=== PATIENT | female | born 1975 | race Caucasian/White ===

== ENCOUNTER 2017-03-24 22:37 | Emergency (ER) | payer SELFPAY ==
[2017-03-25] MEDS ORDERED: Meclizine TAB* 12.5 MG PO ONE (02:49)
[2017-03-25] MEDS ORDERED: NS 0.9% 1000 ML* 2,000 ML IV ONE (02:49)
[2017-03-25] MEDS ORDERED: Ketorolac INJ* 30 MG/ML 1 ML VIAL IV PUSH ONE (03:32)
[2017-03-25 04:02] LABS: Hematocrit 31 % (35-47); Hemoglobin 9.9 g/dl (12.0-16.0); Mean Corpuscular HGB Conc 32 g/dl (31-36); Mean Corpuscular Hemoglobin 26 pg (27-31); Mean Corpuscular Volume 79 fL (80-97); Mean Platelet Volume 7 um3 (7.4-10.4); Red Cell Distribution Width 17 % (10.5-15); White Blood Count 5.8 10^3/ul (3.5-10.8)
[2017-03-25 04:14] LABS: ALT 10 U/L (7-52); AST 15 U/L (13-39); Albumin 4.4 g/dL (3.2-5.2); Alkaline Phosphatase 47 U/L (34-104); Anion Gap 7 mmol/L (2-11); BUN/Creatinine Ratio 13.8 (8-20); Blood Urea Nitrogen 9 mg/dL (6-24); C Reactive Protein < 1.00 mg/L (< 5.00); CO2 Carbon Dioxide 26 mmol/L (22-32); Calcium 9.6 mg/dL (8.6-10.3); Chloride 102 mmol/L (101-111); EGFR African American 128.6 (>60); Globulin 2.6 g/dL (2-4); Glucose 94 mg/dL (70-100); Potassium 3.7 mmol/L (3.5-5.0); Sodium 135 mmol/L (133-145)
[2017-03-25 04:20] LABS: Manual Entry Verification ROB0080; Mono Internal Control QC Line Present
[2017-03-25 04:24] LABS: TSH (Thyroid Stimulating Horm) 2.51 mcIU/mL (0.34-5.60)
[2017-03-25 05:59] LABS: Urine Bacteria Absent (Absent); Urine Bilirubin Negative (Negative); Urine Glucose Negative (Negative); Urine Nitrite Negative (Negative)
[2017-03-25] MEDS ORDERED: Clindamycin CAP* 150 MG PO ONE (06:01)
[2017-03-25 06:30] VITALS: BP 110/67
--- NOTE | 2017-03-25 07:19 | ED ---
Darcy Solo Emily, scribed for Chuy Palomares MD on 03/25/17 at 0321 . Dizziness - HPI Summary HPI Summary: This patient is a 42 year old F presenting to [facility] with a chief complaint of dizziness that started 4 days ago. She took Nyquil last night. The CC is described as worsening and located in central forehead. Symptoms aggravated by movement. Symptoms alleviated by position (lying down). She feels off balance and dizzy when sitting up. Patient reports lightheadedness, increased thirst, throat pain, headache, fatigue, burning/hot sensation in head and neck. Patient denies n/v/d, CP, congestion, appetite changes, SOB, post nasal drip, abd pain, leg swelling. She denies hearing problems, staggering gait, white spots on tonsils, vision problems. She has not had similar symptoms previously. Patient denies previous tonsillectomy. - History Of Current Complaint Chief Complaint: EDDizziness Stated Complaint: DIZZINESS/HEADACHE Time Seen by Provider: 03/25/17 02:35 Hx Obtained From: Patient Onset/Duration: Still Present Timing: Days Severity Initially: Moderate Severity Currently: Moderate Aggravating Factor(s): Other - Movement. Alleviating Factor(s): Lying Down Associated Signs And Symptoms: Positive: Other: - Patient reports lightheadedness, increased thirst, throat pain, headache, fatigue, burning/hot sensation in head and neck. Patient denies n/v/d, CP, congestion, appetite changes, SOB, post nasal drip, abd pain, leg swelling. - Allergies/Home Medications Allergies/Adverse Reactions: Allergies Allergy/AdvReac Type Severity Reaction Status Date / Time Penicillins Allergy Severe Hives Verified 01/16/16 13:33 Sulfa Antibiotics Allergy Severe Anaphylatic Verified 01/16/16 13:33 Shock PMH/Surg Hx/FS Hx/Imm Hx Previously Healthy: No Endocrine/Hematology History: Reports: Hx Anemia Denies: Hx Anticoagulant Therapy, Hx Diabetes, Hx Thyroid Disease Cardiovascular History: Denies: Hx Congestive Heart Failure, Hx Deep Vein Thrombosis, Hx Hypertension , Hx Myocardial Infarction, Hx Pacemaker/ICD Respiratory History: Denies: Hx Asthma, Hx Chronic Obstructive Pulmonary Disease (COPD), Hx Lung Cancer, Hx Pneumonia, Hx Pulmonary Embolism GI History: Denies: Hx Gall Bladder Disease, Hx Gastrointestinal Bleed, Hx Ulcer, Hx Urosepsis History: Denies: Hx Kidney Stones, Hx Renal Disease Musculoskeletal History: Reports: Hx Back Problems - sx 11/02/15 Sensory History: Denies: Hx Hearing Aid Neurological History: Denies: Hx Dementia, Hx Migraine, Hx Seizures, Hx Transient Ischemic Attacks (TIA) Psychiatric History: Reports: Hx Anxiety, Hx Depression, Hx Panic Disorder, Hx Community Mental Health Tx Denies: Hx Eating Disorder, Hx Schizophrenia, Hx Bipolar Disorder, Hx of Violent Episodes Against Others - Surgical History Surgery Procedure, Year, and Place: 2 C-SECTIONS, LSP MICROCISCECTOMY 11/02/15 [place] Infectious Disease History: No Infectious Disease History: Denies: Traveled Outside the [place] in Last 30 Days - Family History Known Family History: Negative: Cardiac Disease, Hypertension, Diabetes - Social History Occupation: Unemployed Lives: Alone Alcohol Use: Occasionally Substance Use Type: Reports: None Substance Use Comment - Amount & Last Used: hx of pt last use unk Smoking Status (MU): Never Smoked Tobacco Have You Smoked in the Last Year: No Review of Systems Positive: Fatigue Positive: Other - Negative congestion, post nasal drip. Positive throat pain Negative: Chest Pain Negative: Shortness Of Breath Positive: Other - Negative appetite changes. Increased thirst. Negative: Abdominal Pain, Vomiting, Diarrhea, Nausea Positive: Other - Negative leg swelling Neurological: Other - Dizziness, lightheadedness, burning/hot sensation in head and neck Positive: Headache All Other Systems Reviewed And Are Negative: Yes Physical Exam - Summary Physical Exam Summary: The patient is well-nourished in no acute distress and in no acute pain. Face feels warm and is flushed HEENT: The head is normocephalic and atraumatic. The pupils are equal and reactive. The conjunctivae are clear and without drainage. Nares are patent and without drainage. Mouth reveals moist mucous membranes and the throat is without erythema and exudate. The external ears are intact. The ear canals are patent and without drainage. The tympanic membranes are intact. No nystagmus. No sinus tenderness. Neck is supple with full range of motion and non-tender. There are no carotid bruits. There is no neck vein distension. Posterior cervical adenopathy. Respiratory: Chest is non-tender. Lungs are clear to auscultation and breath sounds are symmetrical and equal. Cardiovascular: Heart is regular rate and rhythm. There is no murmur or rub auscultated. There is no peripheral edema and pulses are symmetrical and equal. Abdomen: The abdomen is soft and non-tender. There are normal bowel sounds heard in all four quadrants and there is no organomegaly palpated. Musculoskeletal: There is no back pain noted. Extremities are non-tender with full range of motion. There is good capillary refill. There is no peripheral edema or calf tenderness elicited. Neurological: Patient is alert and oriented to person, place and time. The patient has symmetrical motor strength in all four extremities. Cranial nerves are grossly intact. Deep tendon reflexes are symmetrical and equal in all four extremities. No focal weakness. Psychiatric: The patient has an appropriate affect and does not exhibit any anxiety or depression. Triage Information Reviewed: Yes Vital Signs On Initial Exam: Initial Vitals Temp Pulse Resp BP Pulse Ox 97.8 F 99 18 120/84 100 03/24/17 22:41 03/24/17 22:41 03/24/17 22:41 03/24/17 22:41 03/24/17 22:41 Vital Signs Reviewed: Yes - Ike Coma Scale Coma Scale Total: 15 Diagnostics - Vital Signs Vital Signs Temp Pulse Resp BP Pulse Ox 03/25/17 02:30 89 16 127/84 100 03/25/17 02:00 88 15 127/81 100 03/25/17 01:30 89 16 121/84 100 03/25/17 01:00 88 19 119/80 100 03/25/17 00:34 92 15 100 03/25/17 00:33 127/88 03/24/17 22:41 97.8 F 99 18 120/84 100 - Laboratory Lab Results: Lab Results 03/25/17 03/25/17 03/25/17 Range/Units 03:27 03:27 03:27 WBC 5.8 (3.5-10.8) 10^3/ul RBC 3.90 L (4.0-5.4) 10^6/ul Hgb 9.9 L (12.0-16.0) g/dl Hct 31 L (35-47) % MCV 79 L (80-97) fL MCH 26 L (27-31) pg MCHC 32 (31-36) g/dl RDW 17 H (10.5-15) % Plt Count 388 (150-450) 10^3/ul MPV 7 L (7.4-10.4) um3 Neut % (Auto) 52.6 (38-83) % Lymph % (Auto) 39.6 (25-47) % [place] % (Auto) 6.1 (1-9) % Eos % (Auto) 0.6 (0-6) % Baso % (Auto) 1.1 (0-2) % Absolute Neuts (auto) 3.0 (1.5-7.7) 10^3/ul Absolute Lymphs (auto) 2.3 (1.0-4.8) 10^3/ul Absolute Monos (auto) 0.4 (0-0.8) 10^3/ul Absolute Eos (auto) 0 (0-0.6) 10^3/ul Absolute Basos (auto) 0.1 (0-0.2) 10^3/ul Absolute Nucleated RBC 0 10^3/ul Nucleated RBC % 0 Sodium 135 (133-145) mmol/L Potassium 3.7 (3.5-5.0) mmol/L Chloride 102 (101-111) mmol/L Carbon Dioxide 26 (22-32) mmol/L Anion Gap 7 (2-11) mmol/L BUN 9 (6-24) mg/dL Creatinine 0.65 (0.51-0.95) mg/dL Est GFR ( Amer) 128.6 (>60) Est GFR (Non-Af Amer) 100.0 (>60) BUN/Creatinine Ratio 13.8 (8-20) Glucose 94 (70-100) mg/dL Lactic Acid 1.0 (0.5-2.0) mmol/L Calcium 9.6 (8.6-10.3) mg/dL Magnesium 2.0 (1.9-2.7) mg/dL Total Bilirubin 0.30 (0.2-1.0) mg/dL AST 15 (13-39) U/L ALT 10 (7-52) U/L Alkaline Phosphatase 47 (34-104) U/L C-Reactive Protein < 1.00 (< 5.00) mg/L Total Protein 7.0 (6.4-8.9) g/dL Albumin 4.4 (3.2-5.2) g/dL Globulin 2.6 (2-4) g/dL Albumin/Globulin Ratio 1.7 (1-3) TSH 2.51 (0.34-5.60) mcIU/mL Urine Color Urine Appearance Urine pH (5-9) Ur Specific [place] (1.010-1.030) Urine Protein (Negative) Urine Ketones (Negative) Urine Blood (Negative) Urine Nitrate (Negative) Urine Bilirubin (Negative) Urine Urobilinogen (Negative) Ur Leukocyte Esterase (Negative) Urine WBC (Auto) (Absent) Urine RBC (Auto) (Absent) Ur Squamous Epith Cells (Absent) Urine Bacteria (Absent) Urine Glucose (Negative) Monoscreen Negative (Negative) 03/25/17 Range/Units 04:45 WBC (3.5-10.8) 10^3/ul RBC (4.0-5.4) 10^6/ul Hgb (12.0-16.0) g/dl Hct (35-47) % MCV (80-97) fL MCH (27-31) pg MCHC (31-36) g/dl RDW (10.5-15) % Plt Count (150-450) 10^3/ul MPV (7.4-10.4) um3 Neut % (Auto) (38-83) % Lymph % (Auto) (25-47) % [place] % (Auto) (1-9) % Eos % (Auto) (0-6) % Baso % (Auto) (0-2) % Absolute Neuts (auto) (1.5-7.7) 10^3/ul Absolute Lymphs (auto) (1.0-4.8) 10^3/ul Absolute Monos (auto) (0-0.8) 10^3/ul Absolute Eos (auto) (0-0.6) 10^3/ul Absolute Basos (auto) (0-0.2) 10^3/ul Absolute Nucleated RBC 10^3/ul Nucleated RBC % Sodium (133-145) mmol/L Potassium (3.5-5.0) mmol/L Chloride (101-111) mmol/L Carbon Dioxide (22-32) mmol/L Anion Gap (2-11) mmol/L BUN (6-24) mg/dL Creatinine (0.51-0.95) mg/dL Est GFR ( Amer) (>60) Est GFR (Non-Af Amer) (>60) BUN/Creatinine Ratio (8-20) Glucose (70-100) mg/dL Lactic Acid (0.5-2.0) mmol/L Calcium (8.6-10.3) mg/dL Magnesium (1.9-2.7) mg/dL Total Bilirubin (0.2-1.0) mg/dL AST (13-39) U/L ALT (7-52) U/L Alkaline Phosphatase (34-104) U/L C-Reactive Protein (< 5.00) mg/L Total Protein (6.4-8.9) g/dL Albumin (3.2-5.2) g/dL Globulin (2-4) g/dL Albumin/Globulin Ratio (1-3) TSH (0.34-5.60) mcIU/mL Urine Color Straw Urine Appearance Clear Urine pH 7.0 (5-9) Ur Specific [place] 1.005 L (1.010-1.030) Urine Protein Negative (Negative) Urine Ketones Negative (Negative) Urine Blood 3+ H (Negative) Urine Nitrate Negative (Negative) Urine Bilirubin Negative (Negative) Urine Urobilinogen Negative (Negative) Ur Leukocyte Esterase Negative (Negative) Urine WBC (Auto) 2+(11-20/hpf) H (Absent) Urine RBC (Auto) 3+(>10/hpf) H (Absent) Ur Squamous Epith Cells Present H (Absent) Urine Bacteria Absent (Absent) Urine Glucose Negative (Negative) Monoscreen (Negative) Result Diagrams: 03/25/17 03:27 03/25/17 03:27 Lab Statement: Any lab studies that have been ordered have been reviewed, and results considered in the medical decision making process. - CT Head CT Interpretation: No Acute Changes - No acute brain parenchymal abnormality. No hemorrhage, mass or acute territorial infarct. Clear visualized paranasal sinuses. Visualized mastoid air cells clear. CT Interpretation Completed By: Radiologist Re-Evaluation - Re-Evaluation First Eval Re-Evaluation Time: 05:30 Comment: Patient c/o throat pain. Small exudate on right tonsillar pillar, uvula swollen, erythema on posterior pharynx. Dizzy Course/Dx - Course Course Of Treatment: This patient is a 42 year old F presenting to [facility] with a chief complaint of dizziness that started 4 days ago. She took Nyquil last night. The CC is described as worsening and located in central forehead. Symptoms aggravated by movement. Symptoms alleviated by position (lying down). She feels off balance and dizzy when sitting up. Patient reports lightheadedness , increased thirst, throat pain, headache, fatigue, burning/hot sensation in head and neck. Patient denies n/v/d, CP, congestion, appetite changes, SOB, post nasal drip, abd pain, leg swelling. She denies hearing problems, staggering gait, white spots on tonsils, vision problems. She has not had similar symptoms previously. Patient denies previous tonsillectomy. Physical Exam Findings. No nystagmus. No sinus tenderness. Face feels warm and is flushed. Posterior cervical adenopathy. No focal weakness. Medical Decision Making. CT head read by radiologist reveals no acute brain parenchymal abnormality. No hemorrhage, mass or acute territorial infarct. Clear visualized paranasal sinuses. Visualized mastoid air cells clear. ED physician has reviewed this radiology report and agrees. In the ED course the patient was given Toradol inj, Antivert tab, and fluids. Re-evaluation at 0530. Patient c/ o throat pain. Small exudate on right tonsillar pillar, uvula swollen, erythema on posterior pharynx. Patient will be discharged with prescription for Clindamycin and Emery and follow up from Dr. Jolly. The patient is agreeable with this plan. - Diagnoses Provider Diagnoses: Pharyngitis, Headache, Dizziness Discharge - Discharge Plan Condition: Stable Disposition: HOME Prescriptions: Clindamycin Cap(NF) [Clindamycin Cap 300 mg Cap(NF)] 300 mg PO TID #30 cap HYDROcodone/ACETAMIN 5-325 MG* [Emery 5-325 TAB*] 1 tab PO Q6H PRN #20 tab MDD 4 PRN Reason: pain Patient Education Materials: Pharyngitis (ED), Acute Headache (ED), Dizziness ( ED), Clindamycin (By mouth), Hydrocodone/Acetaminophen (By mouth) Forms: *Work Release Referrals: Marques Jolly NP [Primary Care Provider] - 3 Days Additional Instructions: RETURN TO THE EMERGENCY DEPARTMENT FOR CHANGING OR WORSENING SYMPTOMS. The documentation as recorded by the Darcy michael Emily accurately reflects the service I personally performed and the decisions made by , Chuy Palomares MD.
--- NOTE | 2017-03-25 09:00 | RAD ---
INDICATION: Headache and dizziness COMPARISON: None. TECHNIQUE: Contiguous axial sections of the brain were obtained from the skull base to the vertex without contrast. FINDINGS: The ventricles, cisterns and sulci are within normal limits. The izquierdo-white matter differentiation is adequately maintained and there is no sulcal effacement. No significant focal abnormality or mass effect is present. There is no evidence for intracranial hemorrhage. No significant focal osseous abnormality is present. The visualized portion of the paranasal sinuses and mastoid air cells appear clear. IMPRESSION: Normal CT of the brain.
--- NOTE | 2017-03-27 15:46 | PN ---
Progress Note - Progress Note Date of Service: 03/25/17 Note: Patient seen by Dr Palomares. She called at 3:30pm on 03/27/17 due to having insurance issues and being unable to greens picker medications as she could not afford them. Scripts originally sent to [facility] were cancelled by me in order for patient to be able to [facility] picker medications with urgent RX voucher. urgent rx scripts for same medication was sent to [facility] instead.
== END 2017-03-25 06:34 | disposition home or self-care (01) ==
LOC: ED 22:37
DX: J02.9 Acute pharyngitis, unspecified (principal); R51 Headache; R42 Dizziness and giddiness
CPT/HCPCS: 36415; 70450; 80053; 81003; 81015; 83605; 83735; 84443; 85025; 86140; 86308; 99283; A9270-GY; J1885

== ENCOUNTER 2017-05-03 22:09 | Emergency (ER) | payer BC ==
[2017-05-04 00:17] LABS: Urine Bilirubin Negative (Negative); Urine Glucose Negative (Negative); Urine Nitrite Negative (Negative)
--- NOTE | 2017-05-04 01:16 | ED ---
GI/ HPI - HPI Summary HPI Summary: 42F presents with pressure in vaginal area today. She admits to frequency. She denies any dysuria or vaginal discharge. She denies any history of ovarian or cervical cancer or family history of the same. She denies any fever, n/v, abdominal pain, d/c. She has never had this before. She has had 4 children two vaginal and two . She states has had pressure for past week when she defecates. she states that she feels that when she has to use the bathroom there is a mass that is protruding. - History of Current Complaint Chief Complaint: EDGeneral Time Seen by Provider: 05/03/17 23:31 Stated Complaint: PELVIC PAIN Hx Last Menstrual Period: 03/29/16 Pain Intensity: 0 - Additional Pertinent History Primary Care Physician: [id number] - Allergy/Home Medications Allergies/Adverse Reactions: Allergies Allergy/AdvReac Type Severity Reaction Status Date / Time Penicillins Allergy Severe Hives Verified 05/03/17 23:30 Sulfa Antibiotics Allergy Severe Anaphylatic Verified 05/03/17 23:30 Shock PMH/Surg Hx/FS Hx/Imm Hx Endocrine/Hematology History: Reports: Hx Anemia Denies: Hx Anticoagulant Therapy, Hx Diabetes, Hx Thyroid Disease Cardiovascular History: Denies: Hx Congestive Heart Failure, Hx Deep Vein Thrombosis, Hx Hypertension , Hx Myocardial Infarction, Hx Pacemaker/ICD Respiratory History: Denies: Hx Asthma, Hx Chronic Obstructive Pulmonary Disease (COPD), Hx Lung Cancer, Hx Pneumonia, Hx Pulmonary Embolism GI History: Denies: Hx Gall Bladder Disease, Hx Gastrointestinal Bleed, Hx Ulcer, Hx Urosepsis History: Denies: Hx Kidney Stones, Hx Renal Disease Musculoskeletal History: Reports: Hx Back Problems - sx 11/02/15 Sensory History: Denies: Hx Hearing Aid Neurological History: Denies: Hx Dementia, Hx Migraine, Hx Seizures, Hx Transient Ischemic Attacks (TIA) Psychiatric History: Reports: Hx Anxiety, Hx Depression, Hx Panic Disorder, Hx Community Mental Health Tx Denies: Hx Eating Disorder, Hx Schizophrenia, Hx Bipolar Disorder, Hx of Violent Episodes Against Others - Surgical History Surgery Procedure, Year, and Place: 2 C-SECTIONS, LSP MICROCISCECTOMY 11/02/15 [place] Infectious Disease History: No Infectious Disease History: Denies: Traveled Outside the [place] in Last 30 Days - Family History Known Family History: Negative: Cardiac Disease, Hypertension, Diabetes - Social History Alcohol Use: Occasionally Substance Use Type: Reports: None Substance Use Comment - Amount & Last Used: hx of pt last use unk Smoking Status (MU): Never Smoked Tobacco Have You Smoked in the Last Year: No Review of Systems Negative: Fever Negative: Chest Pain Negative: Shortness Of Breath Positive: frequency, other - vaginal mass/pressure All Other Systems Reviewed And Are Negative: Yes Physical Exam Triage Information Reviewed: Yes Vital Signs On Initial Exam: Initial Vitals Temp Pulse Resp BP Pulse Ox 97.7 F 90 18 118/83 100 05/03/17 22:16 05/03/17 22:16 05/03/17 22:16 05/03/17 22:16 05/03/17 22:16 Vital Signs Reviewed: Yes Appearance: Positive: Well-Appearing Skin: Positive: Warm, Dry Head/Face: Positive: Normal Head/Face Inspection Eyes: Positive: Normal, Conjunctiva Clear Respiratory/Lung Sounds: Positive: Clear to Auscultation, Breath Sounds Present Cardiovascular: Positive: Normal, RRR Abdomen Description: Positive: Nontender, Soft Bowel Sounds: Positive: Present Pelvic Exam: Positive: external exam normal, bimanual exam normal, no cerv. motion tender, mass - posterior wall when bares down Neurological: Positive: Normal Diagnostics - Vital Signs Vital Signs Temp Pulse Resp BP Pulse Ox 05/03/17 22:16 97.7 F 90 18 118/83 100 - Laboratory Lab Results: Lab Results 05/04/17 05/04/17 Range/Units 00:04 00:45 Urine Color Straw Urine Appearance Clear Urine pH 7.0 (5-9) Ur Specific [place] 1.004 L (1.010-1.030) Urine Protein Negative (Negative) Urine Ketones Negative (Negative) Urine Blood Negative (Negative) Urine Nitrate Negative (Negative) Urine Bilirubin Negative (Negative) Urine Urobilinogen Negative (Negative) Ur Leukocyte Esterase Negative (Negative) Urine Glucose Negative (Negative) C.trachomatis (Amp Det) Pending N.gonorrhoeae (Amp Det) Pending T.vaginalis (Amp Det) TNP Lab Statement: Any lab studies that have been ordered have been reviewed, and results considered in the medical decision making process. GIGU Course/Dx - Course Course Of Treatment: 42F presents with pressure in vaginal area today. She admits to frequency. She denies any dysuria or vaginal discharge. She denies any history of ovarian or cervical cancer or family history of the same. She denies any fever, n/v, abdominal pain, d/c. She has never had this before. She has had 4 children two vaginal and two . She states has had pressure for past week when she defecates. she states that she feels that when she has to use the bathroom there is a mass that is protruding. on exam abdomen soft nontender, mass that protudes from posterior vaginal wall when bearing down. no abnormal vaginal discharge. u/s shows thickened endometrium, cyt vs hydrosalphinx. urine normal. told of follow up with obgyn as appears to have vaginal prolapse on exam. patient understands and agrees with plan. - Diagnoses Differential Diagnoses - Female: Pelvic Inflammatory Disease, Urinary Tract Infection, Other - vaginal prolapse Provider Diagnoses: Vaginal pain Discharge - Discharge Plan Condition: Good Disposition: HOME Forms: *Work Release Referrals: Lkue Arredondo MD [Medical Doctor] - Izabel Oh MD [Medical Doctor] - Marques Jolly NP [Primary Care Provider] - Additional Instructions: you appear to have a vaginal prolapse Practice kegel exercises Follow up with obgyn Return to ED if develop any new or worsening symptoms
[2017-05-04 02:02] VITALS: BP 125/98
--- NOTE | 2017-05-04 07:28 | RAD ---
INDICATION: Pelvic pain. COMPARISON: There are no prior studies available for comparison. TECHNIQUE: Multiple real-time transvaginal images of the pelvis were obtained. FINDINGS: The uterus is mildly enlarged and heterogeneous in echogenicity. The uterus measured 10.9 x 5.1 x 6.1 cm. The endometrial echo is thickened measuring 1.3 cm in thickness. The right ovary measured 3.7 x 1.8 x 3.1 cm. The left ovary measured 3.4 x 2.0 x 1.8 cm. There is vascular flow within both ovaries. There is an elongated tubular structure adjacent to the right ovary which could represent an involuting follicular cyst versus a hydrosalpinx. No free intraperitoneal fluid is seen. IMPRESSION: 1. THICKENED ENDOMETRIUM AND POSSIBLE RIGHT HYDROSALPINX VERSUS INVOLUTING FOLLICULAR CYST. RECOMMEND A FOLLOW-UP PELVIC ULTRASOUND IN 1-2 MONTHS TIME FOR FURTHER EVALUATION. 2. MILDLY ENLARGED HETEROGENEOUS UTERUS.
[2017-05-04 13:18] LABS: Trichomonas Source Endocervical (Negative)
--- NOTE | 2017-05-05 13:47 | PN ---
Progress Note - Progress Note Date of Service: 05/04/17 Note: Vaginal culture results obtained showing jimmy. will treat with diflucan. spoke with patient who still is having symptoms at 1:45pm. will take medication. no further changes required. encourage to have follow up and return if symptoms persist or do not improve within 1 week.
== END 2017-05-04 02:00 | disposition home or self-care (01) ==
LOC: ED 22:09
DX: R10.2 Pelvic and perineal pain (principal)
CPT/HCPCS: 76830; 81003; 87480; 87491; 87510; 87591; 87661; 99283

== ENCOUNTER 2017-06-24 16:51 | Emergency (ER) | payer BC ==
[2017-06-24 17:07] VITALS: BP 124/75
--- NOTE | 2017-06-24 18:23 | ED ---
Throat Pain/Nasal Congestion - HPI Summary HPI Summary: Patient presents to the ED with CC of SANFORD, head congestion, fluid pressure in the forehead, ear pain and sore throat x 2 days. She has taken nyquil with minimal relief. Denies health problems. non-smoker. D denies chest pain, SOB. She is otherwise healthy. She states she was seen byher primary who gave her a nasal steroid and an allergy medication without relief. However, after give a steroid - she felt much better for 4 days. Now, symptoms have returned. SANFORD is 3/10, constant and feels like pressure. Sore throat is bothering her the most. - History of Current Complaint Chief Complaint: EDThroatPain Time Seen by Provider: 06/24/17 17:00 Hx Obtained From: Patient Onset/Duration: Sudden Onset Severity: Mild Associated Signs And Symptoms: Positive: Dysphagia - Epiglottits Risk Factors Epiglottis Risk Factors: Negative - Allergies/Home Medications Allergies/Adverse Reactions: Allergies Allergy/AdvReac Type Severity Reaction Status Date / Time Penicillins Allergy Severe Hives Verified 05/03/17 23:30 Sulfa Antibiotics Allergy Severe Anaphylatic Verified 05/03/17 23:30 Shock PMH/Surg Hx/FS Hx/Imm Hx Previously Healthy: Yes Endocrine/Hematology History: Reports: Hx Anemia Denies: Hx Anticoagulant Therapy, Hx Diabetes, Hx Thyroid Disease Cardiovascular History: Denies: Hx Congestive Heart Failure, Hx Deep Vein Thrombosis, Hx Hypertension , Hx Myocardial Infarction, Hx Pacemaker/ICD Respiratory History: Denies: Hx Asthma, Hx Chronic Obstructive Pulmonary Disease (COPD), Hx Lung Cancer, Hx Pneumonia, Hx Pulmonary Embolism GI History: Denies: Hx Gall Bladder Disease, Hx Gastrointestinal Bleed, Hx Ulcer, Hx Urosepsis History: Denies: Hx Kidney Stones, Hx Renal Disease Musculoskeletal History: Reports: Hx Back Problems - sx 11/02/15 Sensory History: Denies: Hx Hearing Aid Neurological History: Denies: Hx Dementia, Hx Migraine, Hx Seizures, Hx Transient Ischemic Attacks (TIA) Psychiatric History: Reports: Hx Anxiety, Hx Depression, Hx Panic Disorder, Hx Community Mental Health Tx Denies: Hx Eating Disorder, Hx Schizophrenia, Hx Bipolar Disorder, Hx of Violent Episodes Against Others - Surgical History Surgery Procedure, Year, and Place: 2 C-SECTIONS, LSP MICROCISCECTOMY 11/02/15 [facility] - Immunization History Hx Pertussis Vaccination: No Immunizations Up to Date: Unable to Obtain/Confirm Infectious Disease History: No Infectious Disease History: Denies: Traveled Outside the [place] in Last 30 Days - Family History Known Family History: Negative: Cardiac Disease, Hypertension, Diabetes - Social History Occupation: Employed Full-time Lives: With Family Alcohol Use: Occasionally Hx Substance Use: No Substance Use Type: Reports: None Substance Use Comment - Amount & Last Used: hx of pt last use unk Hx Tobacco Use: No Smoking Status (MU): Never Smoked Tobacco Have You Smoked in the Last Year: No Review of Systems Constitutional: Negative Negative: Fever, Chills, Fatigue Eyes: Negative Positive: Sore Throat, Ear Ache, Nasal Discharge Cardiovascular: Negative Respiratory: Negative Genitourinary: Negative Positive: no symptoms reported, see HPI Musculoskeletal: Negative Positive: Headache All Other Systems Reviewed And Are Negative: Yes Physical Exam Triage Information Reviewed: Yes Vital Signs On Initial Exam: Initial Vitals Temp Pulse Resp BP Pulse Ox 98.1 F 100 18 124/75 100 06/24/17 17:05 06/24/17 17:05 06/24/17 17:05 06/24/17 17:05 06/24/17 17:05 Vital Signs Reviewed: Yes Appearance: Positive: Well-Appearing, Well-Nourished Skin: Positive: Warm, Skin Color Reflects Adequate Perfusion Head/Face: Positive: Normal Head/Face Inspection Eyes: Positive: EOMI, ERI, Conjunctiva Clear ENT: Positive: Pharynx normal, Nasal congestion, Nasal drainage, TMs normal, Uvula midline. Negative: TM bulging, TM dull, TM red, Tonsillar swelling, Tonsillar exudate, Muffled voice, Hoarse voice, Dental tenderness, Sinus tenderness Neck: Positive: Supple, No Lymphadenopathy Respiratory/Lung Sounds: Positive: Clear to Auscultation, Breath Sounds Present Musculoskeletal: Positive: Normal, Strength/ROM Intact Neurological: Positive: Speech Normal Psychiatric: Positive: Normal, Affect/Mood Appropriate AVPU Assessment: Alert - Ike Coma Scale Coma Scale Total: 15 Diagnostics - Vital Signs Vital Signs Temp Pulse Resp BP Pulse Ox 06/24/17 17:05 98.1 F 100 18 124/75 100 - Laboratory Lab Statement: Any lab studies that have been ordered have been reviewed, and results considered in the medical decision making process. EENT Course/Dx - Course Course Of Treatment: Patient is evaluated for sore throat, head congestion and headache. She reports having these symptoms for several days which has been worsening. She is afebrile and deines fevers, sweats or chills. She states prednisone has helped in the past. Continues on nasal sprays. Strep negative. She does not want to try antibiotics and I have agreed this is best as this is likely URI with chest and head congestion. She agrees to try the prednisone again and continue with the nasal sprays and allergy medication. - Differential Diagnoses Differential Diagnoses: Otitis Media, Pharyngitis, URI/Bronchitis - Diagnoses Provider Diagnoses: URI (upper respiratory infection) Discharge - Discharge Plan Condition: Stable Disposition: HOME Prescriptions: predniSONE TAB* [Deltasone TAB*] 50 mg PO DAILY #5 tab MDD 1 Patient Education Materials: Upper Respiratory Infection (ED), Cold Symptoms ( ED) Referrals: Tosin Quach MD [Primary Care Provider] - Additional Instructions: Upper Respiratory Infection Take prednisone 50mg daily for 5 days You appear to have a viral chest cold causing fluid build up and retention. Take prescribed medication as directed. Also recommend using a humidifier in the home, hot tea with lemon and tesha along with doing saline rinses, salt water gargles, taking zicam and drinking emergen-c (available over the counter). Extra pillow at bedtime. Hot showers. Increase fluid intake. Get plenty of rest. Any new or worsening symptoms (fever, difficulty breathing, worsening symptoms) please seek medical attention immediately. Follow up with PCP for re-check and evaluation.
== END 2017-06-24 19:17 | disposition home or self-care (01) ==
LOC: ED 16:51
DX: J06.9 Acute upper respiratory infection, unspecified (principal); R13.10 Dysphagia, unspecified; J02.9 Acute pharyngitis, unspecified; H92.09 Otalgia, unspecified ear
CPT/HCPCS: 87651; 99282

== ENCOUNTER 2017-10-24 20:34 | Emergency (ER) | payer BC ==
[2017-10-24 21:14] LABS: Urine Appearance Cloudy; Urine Blood Negative (Negative); Urine Color Yellow; Urine Ketones Negative (Negative); Urine Protein Negative (Negative); Urine Specific Gravity 1.012 (1.010-1.030); Urine Urobilinogen Negative (Negative)
[2017-10-24] MEDS ORDERED: NS 0.9% 1000 ML* 1,000 ML IV ONE (21:19)
[2017-10-24] MEDS ORDERED: Metoclopramide IV* 5 MG/ML 2 ML VIAL IV SLOW PU ONE (21:19)
[2017-10-24] MEDS ORDERED: Ketorolac INJ* 30 MG/ML 1 ML VIAL IV PUSH ONE (21:19)
[2017-10-24] MEDS ORDERED: diPHENhydraMINE IV* 50 MG/ML 1 ml VIAL (BENADRYL) IV ONE (21:19)
[2017-10-24 21:48] LABS: ABS Basophils 0 10^3/ul (0-0.2); ABS Eosinophils 0 10^3/ul (0-0.6); ABS Lymphocytes 1.5 10^3/ul (1.0-4.8); ABS Monocytes 0.3 10^3/ul (0-0.8); ABS Neutrophils 3.6 10^3/ul (1.5-7.7); ABS Nucleated RBC 0 10^3/ul; EGFR Non-African American 90.3 (>60); Eosinophil % 0.8 % (0-6); Hematocrit 35 % (35-47); Hemoglobin 11.4 g/dl (12.0-16.0); Lymphocyte % 27.3 % (25-47); Mean Corpuscular HGB Conc 33 g/dl (31-36); Mean Corpuscular Hemoglobin 28 pg (27-31); Mean Corpuscular Volume 86 fL (80-97); Nucleated Red Blood Cells % 0; Platelet Count 262 10^3/ul (150-450); Red Blood Count 4.03 10^6/ul (4.0-5.4); Red Cell Distribution Width 27 % (10.5-15); White Blood Count 5.5 10^3/ul (3.5-10.8)
[2017-10-24] MEDS ORDERED: LORazepam INJ* 2 MG/ML 1 ML VIAL IV PUSH ONE (21:50)
[2017-10-24] MEDS ORDERED: LORazepam INJ* 2 MG/ML 1 ML VIAL ONE (21:51)
--- NOTE | 2017-10-24 22:58 | ED ---
Janet Solo Abhishek, scribed for Frankie Anderson MD on 10/24/17 at 2146 . Headache - HPI Summary HPI Summary: This patient is a 42 year old F presenting to [facility] with a chief complaint of SANFORD since 2 days ago. The patient rates the pain 7/10 in severity. Symptoms aggravated by nothing. Symptoms alleviated by nothing. Patient reports nausea, lethargy, throat pain and pain upon urination, and abd pain. Patient denies fever. Pt denies hx of migraines. - History Of Current Complaint Chief Complaint: EDHeadache Stated Complaint: GENERAL ILLNESS Time Seen by Provider: 10/24/17 21:14 Onset/Duration: Gradual Onset, Started days ago - 2 days ago Currently Pain Is: Current Pain Scale(0-10)= - 7, Moderate Timing: Constant Associated Signs And Symptoms: Nausea, Other (Noted In Comments) - Negative fever. - Allergies/Home Medications Allergies/Adverse Reactions: Allergies Allergy/AdvReac Type Severity Reaction Status Date / Time Penicillins Allergy Hives Verified 10/24/17 20:47 Sulfa (Sulfonamide Allergy Anaphylatic Verified 10/24/17 20:47 Antibiotics) Shock Home Medications: Home Medications Ferrous Sulfate TAB* 325 mg PO DAILY 10/24/17 [History Confirmed 10/24/17] Gabapentin CAP(*) [Neurontin 300 CAP(*)] 600 mg PO BID 10/24/17 [History Confirmed 10/24/17] LevoCETirizine TAB (NF) [Xyzal TAB (NF)] 5 mg PO DAILY 10/24/17 [History Confirmed 10/24/17] Multivitamins/Minerals TAB* [Theragran/minerals TAB*] 1 tab PO DAILY 10/24/17 [ History Confirmed 10/24/17] PMH/Surg Hx/FS Hx/Imm Hx Endocrine/Hematology History: Reports: Hx Anemia Denies: Hx Anticoagulant Therapy, Hx Diabetes, Hx Thyroid Disease Cardiovascular History: Denies: Hx Congestive Heart Failure, Hx Deep Vein Thrombosis, Hx Hypertension , Hx Myocardial Infarction, Hx Pacemaker/ICD Respiratory History: Denies: Hx Asthma, Hx Chronic Obstructive Pulmonary Disease (COPD), Hx Lung Cancer, Hx Pneumonia, Hx Pulmonary Embolism GI History: Denies: Hx Gall Bladder Disease, Hx Gastrointestinal Bleed, Hx Ulcer, Hx Urosepsis History: Denies: Hx Kidney Stones, Hx Renal Disease Musculoskeletal History: Reports: Hx Back Problems - sx 11/02/15 Sensory History: Denies: Hx Hearing Aid Neurological History: Denies: Hx Dementia, Hx Migraine, Hx Seizures, Hx Transient Ischemic Attacks (TIA) Psychiatric History: Reports: Hx Anxiety, Hx Depression, Hx Panic Disorder, Hx Community Mental Health Tx Denies: Hx Eating Disorder, Hx Schizophrenia, Hx Bipolar Disorder, Hx of Violent Episodes Against Others - Surgical History Surgery Procedure, Year, and Place: 2 C-SECTIONS, LSP MICROCISCECTOMY 11/02/15 [facility] Infectious Disease History: No Infectious Disease History: Denies: Traveled Outside the [place] in Last 30 Days - Family History Known Family History: Negative: Cardiac Disease, Hypertension, Diabetes - Social History Alcohol Use: Occasionally Hx Substance Use: No Substance Use Type: Reports: None Substance Use Comment - Amount & Last Used: hx of pt last use unk Hx Tobacco Use: No Smoking Status (MU): Never Smoked Tobacco Have You Smoked in the Last Year: No Review of Systems Positive: Fatigue - lethargy. Negative: Fever Eyes: Negative ENT: Other - Throat pain Cardiovascular: Negative Respiratory: Negative Positive: Abdominal Pain, Nausea Genitourinary: Other - Pain upon urination Musculoskeletal: Negative Skin: Negative Positive: Headache Psychological: Normal All Other Systems Reviewed And Are Negative: Yes Physical Exam - Summary Physical Exam Summary: VITAL SIGNS: Reviewed. GENERAL: ~Patient is a well-developed and nourished (FEMALE) who is lying comfortable in the stretcher. Patient is not in any acute respiratory distress. HEAD AND FACE: No signs of trauma. No ecchymosis, hematomas or skull depressions. No sinus tenderness. EYES: PERRLA, EOMI x 2, No injected conjunctiva, no nystagmus. EARS: Hearing grossly intact. Ear canals and tympanic membranes are within normal limits. MOUTH: Oropharynx within normal limits. NECK: Supple, trachea is midline, no adenopathy, no JVD, no carotid bruit, no c- spine tenderness, neck with full ROM. CHEST: Symmetric, no tenderness at palpation LUNGS: Clear to auscultation bilaterally. No wheezing or crackles. CVS: Regular rate and rhythm, S1 and S2 present, no murmurs or gallops appreciated. ABDOMEN: suprapubic tenderness. No signs of distention. No rebound no guarding , and no masses palpated. Bowel sounds are normal. EXTREMITIES: FROM in all major joints, no edema, no cyanosis or clubbing. NEURO: Alert and oriented x 3. No acute neurological deficits. Speech is normal and follows commands. SKIN: Dry and warm Triage Information Reviewed: Yes Vital Signs On Initial Exam: Initial Vitals Temp Pulse Resp BP Pulse Ox 97.7 F 80 16 124/79 99 10/24/17 20:43 10/24/17 20:43 10/24/17 20:43 10/24/17 20:43 10/24/17 20:43 Vital Signs Reviewed: Yes Diagnostics - Vital Signs Vital Signs Temp Pulse Resp BP Pulse Ox 10/24/17 20:43 97.7 F 80 16 124/79 99 - Laboratory Lab Results: Lab Results 10/24/17 Range/Units 21:02 Urine Color Yellow Urine Appearance Cloudy Urine pH 7.0 (5-9) Ur Specific [place] 1.012 (1.010-1.030) Urine Protein Negative (Negative) Urine Ketones Negative (Negative) Urine Blood Negative (Negative) Urine Nitrate Negative (Negative) Urine Bilirubin Negative (Negative) Urine Urobilinogen Negative (Negative) Ur Leukocyte Esterase Negative (Negative) Urine Glucose Negative (Negative) Result Diagrams: 10/24/17 21:20 10/24/17 21:20 Lab Statement: Any lab studies that have been ordered have been reviewed, and results considered in the medical decision making process. Headache Course/Dx - Course Course Of Treatment: The pt is a 42 y/o female with a chief complaint of SANF[place] since 2 days ago (10/22/17). The pt upon reevaluation states she is feeling better. Pt will be discharged home with a dx of SANF[place]. - Diagnoses Provider Diagnoses: Headache Discharge - Sign-Out/Discharge Documenting (check all that apply): Discharge - home - Discharge Plan Condition: Stable Disposition: HOME Patient Education Materials: Acute Headache (ED) Referrals: Tosin Quach MD [Primary Care Provider] - (Please follow up with Primary care physician within 1 to 2 days.) Additional Instructions: RETURN TO EMERGENCY DEPARTMENT FOR ANY NEW OR WORSENING SYMPTOMS - Billing Disposition and Condition Condition: STABLE Disposition: HOME The documentation as recorded by the Janet michael Abhishek accurately reflects the service I personally performed and the decisions made by , Frankie Anderson MD.
[2017-10-24 23:11] VITALS: BP 107/73
== END 2017-10-24 23:10 | disposition home or self-care (01) ==
LOC: ED 20:34
DX: R51 Headache (principal); R11.0 Nausea; R07.0 Pain in throat; R10.9 Unspecified abdominal pain
CPT/HCPCS: 36415; 80053; 81003; 85025; 85060; 86140; 96361; 96374; 96375; 99283; J1200; J1885; J2060; J2765

== ENCOUNTER 2018-01-15 18:55 | Inpatient (IN) | payer BC ==
[2018-01-15 19:30] LABS: ABS Basophils 0 10^3/ul (0-0.2); ABS Eosinophils 0.1 10^3/ul (0-0.6); ABS Lymphocytes 1.8 10^3/ul (1.0-4.8); ABS Monocytes 0.4 10^3/ul (0-0.8); ABS Neutrophils 6.2 10^3/ul (1.5-7.7); ABS Nucleated RBC 0 10^3/ul; Eosinophil % 0.9 % (0-6); Hematocrit 36 % (35-47); Hemoglobin 12.4 g/dl (12.0-16.0); Lymphocyte % 21.2 % (25-47); Mean Corpuscular HGB Conc 34 g/dl (31-36); Mean Corpuscular Hemoglobin 31 pg (27-31); Mean Corpuscular Volume 92 fL (80-97); Mean Platelet Volume 6.9 um3 (7.4-10.4); Nucleated Red Blood Cells % 0.1; Platelet Count 348 10^3/ul (150-450); Red Blood Count 3.94 10^6/ul (4.00-5.40); Red Cell Distribution Width 13 % (10.5-15); White Blood Count 8.4 10^3/ul (3.5-10.8)
[2018-01-15 19:31] LABS: Urine Appearance Clear; Urine Blood Negative (Negative); Urine Color Straw; Urine Ketones Negative (Negative); Urine Protein Negative (Negative); Urine Specific Gravity 1.008 (1.010-1.030); Urine Urobilinogen Negative (Negative)
[2018-01-15 19:53] LABS: EGFR Non-African American 86.1 (>60)
--- NOTE | 2018-01-15 21:12 | ED ---
Micaela Solo Jade, scribed for Frankie Anderson MD on 01/15/18 at 1956 . Psychiatric Complaint - HPI Summary HPI Summary: Pt is a 42 y/o female who presents to the ED c/o depression. She has a PMHx of both anxiety and depression, but states her depression has been getting worse over the past few weeks. She was advised to come to the ED by her therapist. Pt denies any SI or HI, or any specific cause of her depression. She has been hospitalized before for her depression. Pt currently takes Gabapentin, Welbutrin , Dextroamphetamine, and Valium. - History Of Current Complaint Chief Complaint: EDMentalHealth Time Seen by Provider: 01/15/18 19:11 Hx Obtained From: Patient Hx Last Menstrual Period: 03/29/16 Onset/Duration: Gradual Onset, Lasting Weeks - 2-3, Worse Since Timing: Constant Character: Depressed Aggravating Factor(s): Nothing Alleviating Factor(s): Nothing Related History: Positive For: Prior Psychiatric Issues Has Suicidal: Denies: Thoughts Has Homicidal: Denies: Thoughts - Allergies/Home Medications Allergies/Adverse Reactions: Allergies Allergy/AdvReac Type Severity Reaction Status Date / Time Penicillins Allergy Hives Verified 01/15/18 19:00 Sulfa (Sulfonamide Allergy Anaphylatic Verified 01/15/18 19:00 Antibiotics) Shock Home Medications: Home Medications Bupropion XL* [Wellbutrin XL *] 150 mg PO DAILY 01/15/18 [History Confirmed 09/03] Diazepam TAB(*) [Valium TAB(*)] 2.5 - 5 mg PO BEDTIME MDD 5 mg 01/15/18 [ History Confirmed 01/15/18] Gabapentin TAB(NF) [Neurontin 600 mg TAB(NF)] 600 mg PO QID 01/15/18 [History Confirmed 01/15/18] PMH/Surg Hx/FS Hx/Imm Hx Endocrine/Hematology History: Reports: Hx Anemia Denies: Hx Anticoagulant Therapy, Hx Diabetes, Hx Thyroid Disease Cardiovascular History: Denies: Hx Congestive Heart Failure, Hx Deep Vein Thrombosis, Hx Hypertension , Hx Myocardial Infarction, Hx Pacemaker/ICD Respiratory History: Denies: Hx Asthma, Hx Chronic Obstructive Pulmonary Disease (COPD), Hx Lung Cancer, Hx Pneumonia, Hx Pulmonary Embolism GI History: Denies: Hx Gall Bladder Disease, Hx Gastrointestinal Bleed, Hx Ulcer, Hx Urosepsis History: Denies: Hx Kidney Stones, Hx Renal Disease Musculoskeletal History: Reports: Hx Back Problems - sx 11/02/15 Sensory History: Denies: Hx Hearing Aid Neurological History: Denies: Hx Dementia, Hx Migraine, Hx Seizures, Hx Transient Ischemic Attacks (TIA) Psychiatric History: Reports: Hx Anxiety, Hx Depression, Hx Panic Disorder, Hx Community Mental Health Tx Denies: Hx Eating Disorder, Hx Schizophrenia, Hx Bipolar Disorder, Hx of Violent Episodes Against Others - Surgical History Surgery Procedure, Year, and Place: 2 C-SECTIONS, LSP MICROCISCECTOMY 11/02/15 [facility] Infectious Disease History: No Infectious Disease History: Denies: Traveled Outside the [place] in Last 30 Days - Family History Known Family History: Negative: Cardiac Disease, Hypertension, Diabetes - Social History Alcohol Use: Occasionally Hx Substance Use: No Substance Use Type: Reports: None Substance Use Comment - Amount & Last Used: hx of pt last use unk Hx Tobacco Use: No Smoking Status (MU): Never Smoked Tobacco Have You Smoked in the Last Year: No Review of Systems Negative: Fever Psychological: Other - NEGATIVE: SI/HI Positive: Depressed All Other Systems Reviewed And Are Negative: Yes Physical Exam - Summary Physical Exam Summary: VITAL SIGNS: Reviewed. GENERAL: Patient is a well-developed and nourished FEMALE who is lying comfortable in the stretcher. Patient is not in any acute respiratory distress. Depressed affect, without SI or HI. HEAD AND FACE: No signs of trauma. No ecchymosis, hematomas or skull depressions. No sinus tenderness. EYES: PERRLA, EOMI x 2, No injected conjunctiva, no nystagmus. EARS: Hearing grossly intact. Ear canals and tympanic membranes are within normal limits. MOUTH: Oropharynx within normal limits. NECK: Supple, trachea is midline, no adenopathy, no JVD, no carotid bruit, no c- spine tenderness, neck with full ROM. CHEST: Symmetric, no tenderness at palpation LUNGS: Clear to auscultation bilaterally. No wheezing or crackles. CVS: Regular rate and rhythm, S1 and S2 present, no murmurs or gallops appreciated. ABDOMEN: Soft, non-tender. No signs of distention. No rebound no guarding, and no masses palpated. Bowel sounds are normal. EXTREMITIES: FROM in all major joints, no edema, no cyanosis or clubbing. NEURO: Alert and oriented x 3. No acute neurological deficits. Speech is normal and follows commands. SKIN: Dry and warm Triage Information Reviewed: Yes Vital Signs On Initial Exam: Initial Vitals Temp Pulse Resp BP Pulse Ox 97.8 F 89 15 119/87 100 01/15/18 18:59 01/15/18 18:59 01/15/18 18:59 01/15/18 18:59 01/15/18 18:59 Vital Signs Reviewed: Yes Diagnostics - Vital Signs Vital Signs Temp Pulse Resp BP Pulse Ox 01/15/18 18:59 97.8 F 89 15 119/87 100 - Laboratory Lab Results: Lab Results 01/15/18 01/15/18 01/15/18 Range/Units 19:17 19:17 19:21 WBC 8.4 (3.5-10.8) 10^3/ul RBC 3.94 L (4.00-5.40) 10^6/ul Hgb 12.4 (12.0-16.0) g/dl Hct 36 (35-47) % MCV 92 (80-97) fL MCH 31 (27-31) pg MCHC 34 (31-36) g/dl RDW 13 (10.5-15) % Plt Count 348 (150-450) 10^3/ul MPV 6.9 L (7.4-10.4) um3 Neut % (Auto) 73.2 (38-83) % Lymph % (Auto) 21.2 L (25-47) % [place] % (Auto) 4.2 (0-7) % Eos % (Auto) 0.9 (0-6) % Baso % (Auto) 0.5 (0-2) % Absolute Neuts (auto) 6.2 (1.5-7.7) 10^3/ul Absolute Lymphs (auto) 1.8 (1.0-4.8) 10^3/ul Absolute Monos (auto) 0.4 (0-0.8) 10^3/ul Absolute Eos (auto) 0.1 (0-0.6) 10^3/ul Absolute Basos (auto) 0 (0-0.2) 10^3/ul Absolute Nucleated RBC 0 10^3/ul Nucleated RBC % 0.1 Sodium Pending Potassium Pending Chloride Pending Carbon Dioxide Pending Anion Gap Pending BUN Pending Creatinine Pending Est GFR ( Amer) Pending Est GFR (Non-Af Amer) Pending BUN/Creatinine Ratio Pending Glucose Pending Calcium Pending Total Bilirubin Pending AST Pending ALT Pending Alkaline Phosphatase Pending Total Protein Pending Albumin Pending Globulin Pending Albumin/Globulin Ratio Pending TSH Pending Beta HCG, Quant Pending Urine Color Straw Urine Appearance Clear Urine pH 6.0 (5-9) Ur Specific [place] 1.008 L (1.010-1.030) Urine Protein Negative (Negative) Urine Ketones Negative (Negative) Urine Blood Negative (Negative) Urine Nitrate Negative (Negative) Urine Bilirubin Negative (Negative) Urine Urobilinogen Negative (Negative) Ur Leukocyte Esterase 1+ A (Negative) Urine WBC (Auto) 1+(6-10/hpf) A (Absent) Urine RBC (Auto) Trace(0-2/hpf) (Absent) Ur Squamous Epith Cells Present A (Absent) Urine Bacteria Absent (Absent) Urine Glucose Negative (Negative) Salicylates < 2.50 (<30) mg/dL Acetaminophen < 15 mcg/mL Serum Alcohol < 10 (<10) mg/dL Result Diagrams: 01/15/18 19:17 01/15/18 19:17 Lab Statement: Any lab studies that have been ordered have been reviewed, and results considered in the medical decision making process. - EKG 19:30 Cardiac Rate: NL - 85 bpm EKG Rhythm: Sinus Rhythm EKG Interpretation: Normal axis. Normal interval. No ischemic changes. Course/Dx - Course Course Of Treatment: Pt is a 42 y/o female c/o worsening depression over the past few weeks. She has a history of both anxiety and depression, and has been admitted to psych. A physical exam revealed depressed affect, without SI or HI. An EKG revealed normal rate at 85 bpm, normal rhythm, normal axis, normal intervals, no ischemic changes. 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 Pt will be admitted to psych, and Dr. Villasenor accepts the pt for admission. - Differential Dx/Clinical Impression Provider Diagnosis: Substance induced mood disorder Discharge - Sign-Out/Discharge Documenting (check all that apply): Discharge/Admit/Transfer - Admit, Sign-Out Patient Signing out patient TO: Tyrone Villasenor - Discharge Plan Condition: Stable Dis[place] [place]: Tosin Quach MD [Primary Care Provider] - - Billing Disposition and Condition Condition: STABLE Disposition: [place]iatric [place] [facility] [place] The documentation as recorded by the Micaela michael Jade accurately reflects the service I personally performed and the decisions made by me, Frankie Anderson MD.
[2018-01-15] MEDS ORDERED: Al Hydrox/Mg Hydrox/Simet LIQ* 30 ML UDC PO PRN (23:45)
[2018-01-16] MEDS ORDERED: Gabapentin CAP(*) 300 MG ONE (00:01)
[2018-01-16] MEDS ORDERED: BuPROPion XL* 150 MG TAB.XL PO ONE (00:01)
[2018-01-16] MEDS ORDERED: Diazepam TAB(*) 5 MG ONE (00:01)
[2018-01-16] MEDS: Gabapentin CAP(*) 300 MG PO SCH ×5 (00:10→21:20)
[2018-01-16] MEDS: BuPROPion XL* 150 MG TAB.XL PO SCH ×2 (00:10→08:24)
[2018-01-16] MEDS: Vitamin THERAPEUTIC TAB PO SCH (08:24)
[2018-01-16] MEDS: Methylphenidate ER 27 MG TAB PO SCH (14:03)
[2018-01-16] MEDS: Diazepam TAB(*) 5 MG PO SCH ×2 (14:04→21:21)
[2018-01-16] MEDS: METRONIDAZOLE 0.75% TOPICAL PRN (17:35)
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
[2018-01-16] MEDS ORDERED: Diazepam TAB(*) 5 MG PO SCH (21:00)
[2018-01-16] MEDS: Prazosin CAP* 1 MG PO SCH (21:20)
[2018-01-16] MEDS: Ferrous Sulfate TAB* 325 MG PO SCH (21:20)
[2018-01-17] MEDS: Diazepam TAB(*) 5 MG PO SCH ×2 (08:05→21:33)
[2018-01-17] MEDS: Methylphenidate ER 27 MG TAB PO SCH (08:05)
[2018-01-17] MEDS: Vitamin THERAPEUTIC TAB PO SCH (08:06)
[2018-01-17] MEDS: Prazosin CAP* 1 MG PO SCH ×2 (08:06→21:34)
[2018-01-17] MEDS: Famotidine TAB* 20 MG PO SCH (08:07)
[2018-01-17] MEDS: Gabapentin CAP(*) 300 MG PO SCH ×4 (08:07→21:33)
[2018-01-17] MEDS: Cetirizine* 10 MG TAB PO SCH (08:08)
[2018-01-17] MEDS: BuPROPion XL* 150 MG TAB.XL PO SCH (08:08)
--- NOTE | 2018-01-17 10:43 | PN ---
Subjective - Subjective Date of Service: 01/17/18 Service Type: 91900 Hosp care 15 min low complexity Subjective: Roxana is seen in Holiday coverage for food stand manager Jeimy Segovia. The patient is found in her room and she admits that she tends to isolate a bit to avoid "some of the craziness out there." She reports tolerating her introductory dose of prazosin well, although she hasn't noticed any benefit as yet. The patient denies SI today and is requesting enhanced privileges on the unit, including comfort room and going outside. Objective - Appearance Appearance: Well Developed/Nourished Dysmorphic Features: No Hygiene: Normal Grooming: Fairly Well Kept - Behavior Psychomotor Activities: Normal Exhibits Abnormal Movement: No - Attitude and Relatedness Attitude and Relatedness: Cooperative Eye Contact: Fair - Speech Quality: Unpressured Latencies: Normal Quantity: Appropriate - Mood Patient's Decription of Mood: "Okay" - Affect Observed Affect: Fair Affect Consistent with: Euthymia - Thought Process Patient's Thought Process: Coherent Thought Content: No Passive Wish, No Suicidal Planning, No Homicidal Ideation, No Paranoid Ideation - Sensorium Experiencing Hallucinations: No, Sensorium is Clear Type of Hallucinations: Visual: No, Auditory: No, Command: No - Level of Consciousness Level of Consciousness: Alert Orientation: Yes Intact, Yes Orientated to Time, Yes Orientated to Place, Yes Orientated to Person - Impulse Control Impulse Control: Tenuous - Insight and Judgement Insight and Judgement: Fair - Group Participation Particating in Group Activities: Yes - Medication Management Medication Management Adherence: Yes Assessment - Assessment Merits Inpatient Hospitalization: For Immediate Safety, For Stabilization Inpatient DSM-V Dx: F43.10 Clinical Impression: 42 y.o. , white female with a history of PTSD, ADHD, anxiety and possible bipolarity admitted on a voluntary 9.13 legal status due to suicidal ideations. Plan - Plan Treatment Plan: Name: ROXANA ELKINS Birthdate: 1975 [id number] The patient is on a regimen of bupropion XL, diazepam, gabapentin, long-acting methylphenidate and prazosin. Per her request, we will increase prazosin to 3mg PO qhs. Continue to treat patient per voluntary status on inpatient unit. Continued Medication Management: Different Medication Medications: Current Medications Acetaminophen (Tylenol Tab*) 650 mg PO Q4H PRN PRN Reason: PAIN or TEMP > 101 F Al Hydrox/Mg Hydrox/Simethicone (Maalox Plus*) 30 ml PO Q4H PRN PRN Reason: INDIGESTION Bupropion HCl (Wellbutrin Xl *) 150 mg PO DAILY [facility] Last Admin: 01/17/18 08:08 Dose: 150 mg Cetirizine HCl (Zyrtec*) 10 mg PO DAILY [facility] Last Admin: 01/17/18 08:08 Dose: 10 mg Diazepam (Valium Tab(*)) 2.5 mg PO BID [facility] Last Admin: 01/17/18 08:05 Dose: 2.5 mg Famotidine (Pepcid Tab*) 20 mg PO DAILY [facility] Last Admin: 01/17/18 08:07 Dose: 20 mg Ferrous Sulfate (Ferrous Sulfate Tab*) 325 mg PO BEDTIME [facility] Last Admin: 01/16/18 21:20 Dose: 325 mg Gabapentin (Neurontin Cap(*)) 600 mg PO QID [facility] Last Admin: 01/17/18 08:07 Dose: 600 mg Methylphenidate HCl (Concerta) 54 mg PO DAILY [facility] Last Admin: 01/17/18 08:05 Dose: 54 mg Metronidazole (Metrocream (Nf)) 1 applic TOPICAL BID PRN PRN Reason: ITCHING Last Admin: 01/16/18 17:35 Dose: 1 applic Multivitamins (Theragran Tab*) 1 tab PO DAILY [facility] Last Admin: 01/17/18 08:06 Dose: 1 tab Prazosin HCl (Minipress Cap*) 3 mg PO BEDTIME [facility] - Discharge Plan Discharge Plan: Inpatient Hospitalization Lab Results - Lab Results Lab Results: 01/15/18 01/15/18 01/15/18 19:17 19:17 19:17 WBC 8.4 RBC 3.94 L Hgb 12.4 Hct 36 MCV 92 MCH 31 MCHC 34 RDW 13 Plt Count 348 MPV 6.9 L Neut % (Auto) 73.2 Lymph % (Auto) 21.2 L [place] % (Auto) 4.2 Eos % (Auto) 0.9 Baso % (Auto) 0.5 Absolute Neuts (auto) 6.2 Absolute Lymphs (auto) 1.8 Absolute Monos (auto) 0.4 Absolute Eos (auto) 0.1 Absolute Basos (auto) 0 Absolute Nucleated RBC 0 Nucleated RBC % 0.1 Sodium 136 Potassium 3.4 L Chloride 101 Carbon Dioxide 25 Anion Gap 10 BUN 12 Creatinine 0.74 Est GFR ( Amer) 104.1 Est GFR (Non-Af Amer) 86.1 BUN/Creatinine Ratio 16.2 Glucose 99 Hemoglobin A1c 5.2 Calcium 9.2 Total Bilirubin 0.30 AST 18 ALT 12 Alkaline Phosphatase 61 Total Protein 7.1 Albumin 4.2 Globulin 2.9 Albumin/Globulin Ratio 1.4 Triglycerides 296 Cholesterol 180 LDL Cholesterol 75 HDL Cholesterol 45.4 TSH 1.66 Beta HCG, Quant < 0.60 Urine Color Urine Appearance Urine pH Ur Specific [place] Urine Protein Urine Ketones Urine Blood Urine Nitrate Urine Bilirubin Urine Urobilinogen Ur Leukocyte Esterase Urine WBC (Auto) Urine RBC (Auto) Ur Squamous Epith Cells Urine Bacteria Urine Glucose Salicylates < 2.50 Urine Opiates Screen Acetaminophen < 15 Ur Barbiturates Screen Ur Phencyclidine Scrn Ur Amphetamines Screen U Benzodiazepines Scrn Urine Cocaine Screen U Cannabinoids Screen Serum Alcohol < 10 01/15/18 01/15/18 19:21 19:21 WBC RBC Hgb Hct MCV MCH MCHC RDW Plt Count MPV Neut % (Auto) Lymph % (Auto) [place] % (Auto) Eos % (Auto) Baso % (Auto) Absolute Neuts (auto) Absolute Lymphs (auto) Absolute Monos (auto) Absolute Eos (auto) Absolute Basos (auto) Absolute Nucleated RBC Nucleated RBC % Sodium Potassium Chloride Carbon Dioxide Anion Gap BUN Creatinine Est GFR ( Amer) Est GFR (Non-Af Amer) BUN/Creatinine Ratio Glucose Hemoglobin A1c Calcium Total Bilirubin AST ALT Alkaline Phosphatase Total Protein Albumin Globulin Albumin/Globulin Ratio Triglycerides Cholesterol LDL Cholesterol HDL Cholesterol TSH Beta HCG, Quant Urine Color Straw Urine Appearance Clear Urine pH 6.0 Ur Specific [place] 1.008 L Urine Protein Negative Urine Ketones Negative Urine Blood Negative Urine Nitrate Negative Urine Bilirubin Negative Urine Urobilinogen Negative Ur Leukocyte Esterase 1+ A Urine WBC (Auto) 1+(6-10/hpf) A Urine RBC (Auto) Trace(0-2/hpf) Ur Squamous Epith Cells Present A Urine Bacteria Absent Urine Glucose Negative Salicylates Urine Opiates Screen None detected Acetaminophen Ur Barbiturates Screen None detected Ur Phencyclidine Scrn None detected Ur Amphetamines Screen Presumptive positive A U Benzodiazepines Scrn Presumptive positive A Urine Cocaine Screen Presumptive positive A U Cannabinoids Screen None detected Serum Alcohol
[2018-01-17] MEDS: METRONIDAZOLE 0.75% TOPICAL PRN (13:09)
[2018-01-17] MEDS: Ferrous Sulfate TAB* 325 MG PO SCH (21:34)
[2018-01-18] MEDS: Famotidine TAB* 20 MG PO SCH (08:01)
[2018-01-18] MEDS: Diazepam TAB(*) 5 MG PO SCH ×2 (08:01→16:07)
[2018-01-18] MEDS: Vitamin THERAPEUTIC TAB PO SCH (08:01)
[2018-01-18] MEDS: Gabapentin CAP(*) 300 MG PO SCH ×4 (08:02→20:36)
[2018-01-18] MEDS: Methylphenidate ER 27 MG TAB PO SCH (08:02)
[2018-01-18] MEDS: Cetirizine* 10 MG TAB PO SCH (08:02)
[2018-01-18] MEDS: BuPROPion XL* 150 MG TAB.XL PO SCH (08:03)
[2018-01-18] MEDS: METRONIDAZOLE 0.75% TOPICAL PRN (14:11)
--- NOTE | 2018-01-18 15:57 | PN ---
Subjective - Subjective Date of Service: 01/18/18 Service Type: 85888 Hosp care 35 min high complexity Subjective: In a lengthy meeting with Roxana and Sandra Orantes LCSW, we discussed PTSD, her inability to find adequate treatment so far, and the need for reduced stress. I have responded to her workplace ([employer], fax to HR [phone]. Phone to [employer] [phone]). Roxana appears to be having a PTSD response to her life at present. Many stressful complications, such as housing and a new job schedule, may have precipitated this. Objective - Appearance Appearance: Thin Framed Dysmorphic Features: No Hygiene: Normal Grooming: Fairly Well Kept - Behavior Psychomotor Activities: Normal Exhibits Abnormal Movement: No - Attitude and Relatedness Attitude and Relatedness: Cooperative Eye Contact: Good - Speech Quality: Unpressured Latencies: Normal Quantity: Terse - Mood Patient's Decription of Mood: "Irritable" - Affect Observed Affect: Tense Affect Consistent with: Dysphoria - Thought Process Patient's Thought Process: Coherent Thought Content: Yes Passive Wish, No Suicidal Planning, No Homicidal Ideation, No Paranoid Ideation - Sensorium Experiencing Hallucinations: No, Sensorium is Clear Type of Hallucinations: Visual: No, Auditory: No, Command: No - Level of Consciousness Level of Consciousness: Agitated Orientation: Yes Intact, Yes Orientated to Time, Yes Orientated to Place, Yes Orientated to Person - Impulse Control Impulse Control: Tenuous - Insight and Judgement Insight and Judgement: Fair - Group Participation Particating in Group Activities: Yes - Medication Management Medication Management Adherence: Yes - Additional Observations Comments: Medication recommendation adherent, she is pleased that she is beginning to sleep better. The milieu is very upsetting and agitating to her. Her thoughts have cleared over the last two days, but she still dissolves into tears at times and cannot see a way forward. Assessment - Assessment Merits Inpatient Hospitalization: For Immediate Safety, For Discharge Planning Inpatient DSM-V Dx: F43.10 Clinical Impression: This is likely an exacerbation of PTSD, but there is an overlaying depressive disorder that remains and needs to be treated. Plan - Plan Treatment Plan: Name: ROXANA ELKINS Birthdate: 1975 [id number] Continued Medication Management: Different Medication Medications: Current Medications Acetaminophen (Tylenol Tab*) 650 mg PO Q4H PRN PRN Reason: PAIN or TEMP > 101 F Al Hydrox/Mg Hydrox/Simethicone (Maalox Plus*) 30 ml PO Q4H PRN PRN Reason: INDIGESTION Bupropion HCl (Wellbutrin Xl *) 150 mg PO DAILY [facility] Last Admin: 01/18/18 08:03 Dose: 150 mg Cetirizine HCl (Zyrtec*) 10 mg PO DAILY [facility] Last Admin: 01/18/18 08:02 Dose: 10 mg Diazepam (Valium Tab(*)) 5 mg PO Q8H [facility] Famotidine (Pepcid Tab*) 20 mg PO DAILY [facility] Last Admin: 01/18/18 08:01 Dose: 20 mg Ferrous Sulfate (Ferrous Sulfate Tab*) 325 mg PO BEDTIME [facility] Last Admin: 01/17/18 21:34 Dose: 325 mg Gabapentin (Neurontin Cap(*)) 600 mg PO QID [facility] Last Admin: 01/18/18 13:13 Dose: 600 mg Methylphenidate HCl (Concerta) 54 mg PO DAILY [facility] Last Admin: 01/18/18 08:02 Dose: 54 mg Metronidazole (Metrocream (Nf)) 1 applic TOPICAL BID PRN PRN Reason: ITCHING Last Admin: 01/18/18 14:11 Dose: 1 applic Multivitamins (Theragran Tab*) 1 tab PO DAILY [facility] Last Admin: 01/18/18 08:01 Dose: 1 tab Prazosin HCl (Minipress Cap*) 3 mg PO BEDTIME [facility] Last Admin: 01/17/18 21:34 Dose: 3 mg - Discharge Plan Discharge Plan: Outpatient Follow Up
[2018-01-18] MEDS: Ferrous Sulfate TAB* 325 MG PO SCH (20:37)
[2018-01-18] MEDS: Prazosin CAP* 1 MG PO SCH (22:08)
[2018-01-19] MEDS: Vitamin THERAPEUTIC TAB PO SCH (08:35)
[2018-01-19] MEDS: Famotidine TAB* 20 MG PO SCH (08:36)
[2018-01-19] MEDS: BuPROPion XL* 150 MG TAB.XL PO SCH (08:36)
[2018-01-19] MEDS: Methylphenidate ER 27 MG TAB PO SCH (08:36)
[2018-01-19] MEDS: Gabapentin CAP(*) 300 MG PO SCH ×4 (08:36→20:06)
[2018-01-19] MEDS: Diazepam TAB(*) 5 MG PO SCH ×4 (08:37→20:06)
[2018-01-19] MEDS: Cetirizine* 10 MG TAB PO SCH (08:38)
--- NOTE | 2018-01-19 14:35 | PN ---
Subjective - Subjective Date of Service: 01/19/18 Service Type: 39079 Hosp care 25 min moderate complexity Subjective: I met with Roxana and we discussed medications: prazosin's function, my desire to discontinue Valium and hers to prolong its use somewhat but eventually discontinue it, and increasing Wellbutrin. Roxana is happy to be off Adderall and finds Concerta helpful. She is feeling hopeful that her life will be improved upon discharge or at least that she will have a plan to improve it. Objective - Appearance Appearance: Thin Framed Dysmorphic Features: No Hygiene: Normal Grooming: Fairly Well Kept - Behavior Psychomotor Activities: Normal Exhibits Abnormal Movement: No - Attitude and Relatedness Attitude and Relatedness: Cooperative Eye Contact: Good - Speech Quality: Unpressured Latencies: Normal Quantity: Appropriate - Mood Patient's Decription of Mood: "Good" - Affect Observed Affect: Constricted Affect Consistent with: Dysphoria - Thought Process Patient's Thought Process: Coherent, Goal Directed Thought Content: No Passive Wish, No Suicidal Planning, No Homicidal Ideation, No Paranoid Ideation - Sensorium Experiencing Hallucinations: No, Sensorium is Clear Type of Hallucinations: Visual: No, Auditory: No, Command: No - Level of Consciousness Level of Consciousness: Alert Orientation: Yes Intact, Yes Orientated to Time, Yes Orientated to Place, Yes Orientated to Person - Impulse Control Impulse Control: Intact - Insight and Judgement Insight and Judgement: Good - Group Participation Particating in Group Activities: Yes - Medication Management Medication Management Adherence: Yes - Additional Observations Comments: Medication recommendation adherent, she is pleased that she is beginning to sleep better. The milieu is very upsetting and agitating to her. Her thoughts have cleared over the last three days. She is feeling better. Assessment - Assessment Merits Inpatient Hospitalization: For Immediate Safety, For Stabilization, For Discharge Planning Inpatient DSM-V Dx: F43.10 Clinical Impression: This is likely an exacerbation of PTSD, but there is an overlaying depressive disorder that remains and needs to be treated. Medications are being refined and Roxana is responding well and using her hospital stay to make changes in a safe environment. Plan - Plan Treatment Plan: Name: ROXANA ELKINS Birthdate: 1975 [id number] Continued Medication Management: Different Medication Medications: Current Medications Acetaminophen (Tylenol Tab*) 650 mg PO Q4H PRN PRN Reason: PAIN or TEMP > 101 F Al Hydrox/Mg Hydrox/Simethicone (Maalox Plus*) 30 ml PO Q4H PRN PRN Reason: INDIGESTION Bupropion HCl (Wellbutrin Xl *) 150 mg PO DAILY [facility] Last Admin: 01/19/18 08:36 Dose: 150 mg Cetirizine HCl (Zyrtec*) 10 mg PO DAILY [facility] Last Admin: 01/19/18 08:38 Dose: 10 mg Diazepam (Valium Tab(*)) 5 mg PO TID [facility] Last Admin: 01/19/18 13:51 Dose: 5 mg Famotidine (Pepcid Tab*) 20 mg PO DAILY [facility] Last Admin: 01/19/18 08:36 Dose: 20 mg Ferrous Sulfate (Ferrous Sulfate Tab*) 325 mg PO BEDTIME [facility] Last Admin: 01/18/18 20:37 Dose: 325 mg Gabapentin (Neurontin Cap(*)) 600 mg PO QID [facility] Last Admin: 01/19/18 13:19 Dose: 600 mg Methylphenidate HCl (Concerta) 54 mg PO DAILY [facility] Last Admin: 01/19/18 08:36 Dose: 54 mg Metronidazole (Metrocream (Nf)) 1 applic TOPICAL BID PRN PRN Reason: ITCHING Last Admin: 01/18/18 14:11 Dose: 1 applic Multivitamins (Theragran Tab*) 1 tab PO DAILY [facility] Last Admin: 01/19/18 08:35 Dose: 1 tab Prazosin HCl (Minipress Cap*) 3 mg PO BEDTIME [facility] Last Admin: 01/18/18 22:08 Dose: 3 mg - Discharge Plan Discharge Plan: Outpatient Follow Up Outpatient Program: Private Clinician(s) Additional Comments: Roxana is struggling with her outpatient providers and would benefit from receiving adequate care that will also fit her schedule. Further, she requires leads on housing that might be able to work with [facility]. Still, she is continuing to benefit from medication changes here.
[2018-01-19] MEDS: METRONIDAZOLE 0.75% TOPICAL PRN (19:02)
[2018-01-19] MEDS: Ferrous Sulfate TAB* 325 MG PO SCH (20:06)
[2018-01-19] MEDS: Prazosin CAP* 1 MG PO SCH (20:12)
[2018-01-20] MEDS: Gabapentin CAP(*) 300 MG PO SCH ×4 (08:01→19:57)
[2018-01-20] MEDS: Diazepam TAB(*) 5 MG PO SCH ×3 (08:02→19:57)
[2018-01-20] MEDS: BuPROPion XL* 300 MG TAB.XL PO SCH (08:02)
[2018-01-20] MEDS: Cetirizine* 10 MG TAB PO SCH (08:02)
[2018-01-20] MEDS: Famotidine TAB* 20 MG PO SCH (08:02)
[2018-01-20] MEDS: Vitamin THERAPEUTIC TAB PO SCH (08:02)
[2018-01-20] MEDS: Methylphenidate ER 27 MG TAB PO SCH (08:02)
--- NOTE | 2018-01-20 12:11 | PN ---
Subjective - Subjective Date of Service: 01/20/18 Service Type: 11683 Hosp care 15 min low complexity Subjective: Roxana is seen in weekend coverage for NPP Jeimy Segovia. The patient is doing well and informs me that her target discharge date is January 23. She asks for an increase in her bupropion XL from 150 to 300mg, however, I note that her attending provider has already made this change. Roxana denies SI and has been active and social on the milieu. Staff denies any management or behavioral issues and the patient feels like she's doing well. Objective - Appearance Appearance: Well Developed/Nourished Dysmorphic Features: No Hygiene: Normal Grooming: Well Kept - Behavior Psychomotor Activities: Normal Exhibits Abnormal Movement: No - Attitude and Relatedness Attitude and Relatedness: Cooperative Eye Contact: Fair - Speech Quality: Unpressured Latencies: Normal Quantity: Appropriate - Mood Patient's Decription of Mood: "Okay" - Affect Observed Affect: Fair Affect Consistent with: Euthymia - Thought Process Patient's Thought Process: Coherent Thought Content: No Passive Wish, No Suicidal Planning, No Homicidal Ideation, No Paranoid Ideation - Sensorium Experiencing Hallucinations: No, Sensorium is Clear Type of Hallucinations: Visual: No, Auditory: No, Command: No - Level of Consciousness Level of Consciousness: Alert Orientation: Yes Intact, Yes Orientated to Time, Yes Orientated to Place, Yes Orientated to Person - Impulse Control Impulse Control: Tenuous - Insight and Judgement Insight and Judgement: Fair - Group Participation Particating in Group Activities: Yes - Medication Management Medication Management Adherence: Yes Assessment - Assessment Merits Inpatient Hospitalization: Consolidate Improvements, Pending Safe DC Plan Inpatient DSM-V Dx: F43.10 Clinical Impression: 42 y.o. , white female with a history of PTSD, ADHD, anxiety and possible bipolarity admitted on a voluntary 9.13 legal status due to suicidal ideations. Plan - Plan Treatment Plan: Name: ROXANA ELKINS Birthdate: 1975 [id number] The patient is on a regimen of bupropion XL, diazepam, gabapentin, long-acting methylphenidate and prazosin. Continue to treat patient per voluntary status on inpatient unit. Continued Medication Management: Different Medication Medications: Current Medications Acetaminophen (Tylenol Tab*) 650 mg PO Q4H PRN PRN Reason: PAIN or TEMP > 101 F Al Hydrox/Mg Hydrox/Simethicone (Maalox Plus*) 30 ml PO Q4H PRN PRN Reason: INDIGESTION Bupropion HCl (Bupropion Xl*) 300 mg PO DAILY [facility] Last Admin: 01/20/18 08:02 Dose: 300 mg Cetirizine HCl (Zyrtec*) 10 mg PO DAILY [facility] Last Admin: 01/20/18 08:02 Dose: 10 mg Diazepam (Valium Tab(*)) 5 mg PO TID [facility] Last Admin: 01/20/18 08:02 Dose: 5 mg Famotidine (Pepcid Tab*) 20 mg PO DAILY [facility] Last Admin: 01/20/18 08:02 Dose: 20 mg Ferrous Sulfate (Ferrous Sulfate Tab*) 325 mg PO BEDTIME [facility] Last Admin: 01/19/18 20:06 Dose: 325 mg Gabapentin (Neurontin Cap(*)) 600 mg PO QID [facility] Last Admin: 01/20/18 08:01 Dose: 600 mg Methylphenidate HCl (Concerta) 54 mg PO DAILY [facility] Last Admin: 01/20/18 08:02 Dose: 54 mg Metronidazole (Metrocream (Nf)) 1 applic TOPICAL BID PRN PRN Reason: ITCHING Last Admin: 01/19/18 19:02 Dose: 1 applic Multivitamins (Theragran Tab*) 1 tab PO DAILY [facility] Last Admin: 01/20/18 08:02 Dose: 1 tab Prazosin HCl (Minipress Cap*) 3 mg PO BEDTIME [facility] Last Admin: 01/19/18 20:12 Dose: 3 mg - Discharge Plan Discharge Plan: Inpatient Hospitalization
[2018-01-20] MEDS: METRONIDAZOLE 0.75% TOPICAL PRN ×2 (17:44→21:17)
[2018-01-20] MEDS: Ferrous Sulfate TAB* 325 MG PO SCH (19:57)
[2018-01-20] MEDS: Prazosin CAP* 1 MG PO SCH (19:58)
[2018-01-21] MEDS: Gabapentin CAP(*) 300 MG PO SCH ×4 (07:00→20:40)
[2018-01-21] MEDS: Acetaminophen TAB* 325 MG PO PRN (08:15)
[2018-01-21] MEDS: Cetirizine* 10 MG TAB PO SCH (08:16)
[2018-01-21] MEDS: Famotidine TAB* 20 MG PO SCH (08:16)
[2018-01-21] MEDS: Methylphenidate ER 27 MG TAB PO SCH (08:16)
[2018-01-21] MEDS: BuPROPion XL* 300 MG TAB.XL PO SCH (08:16)
[2018-01-21] MEDS: Vitamin THERAPEUTIC TAB PO SCH (08:17)
[2018-01-21] MEDS: Diazepam TAB(*) 5 MG PO SCH ×3 (08:17→20:40)
[2018-01-21] MEDS: METRONIDAZOLE 0.75% TOPICAL PRN (17:36)
[2018-01-21] MEDS: Ferrous Sulfate TAB* 325 MG PO SCH (20:40)
[2018-01-21] MEDS: Prazosin CAP* 1 MG PO SCH (20:41)
[2018-01-22] MEDS: Gabapentin CAP(*) 300 MG PO SCH ×4 (08:03→20:49)
[2018-01-22] MEDS: Vitamin THERAPEUTIC TAB PO SCH (08:04)
[2018-01-22] MEDS: BuPROPion XL* 300 MG TAB.XL PO SCH (08:04)
[2018-01-22] MEDS: Cetirizine* 10 MG TAB PO SCH (08:04)
[2018-01-22] MEDS: Diazepam TAB(*) 5 MG PO SCH ×4 (08:04→20:48)
[2018-01-22] MEDS: Methylphenidate ER 27 MG TAB PO SCH (08:05)
[2018-01-22] MEDS: Famotidine TAB* 20 MG PO SCH (08:05)
[2018-01-22] MEDS: Acetaminophen TAB* 325 MG PO PRN ×2 (08:57→13:13)
--- NOTE | 2018-01-22 11:56 | PN ---
Subjective - Subjective Date of Service: 01/22/18 Service Type: 54051 Hosp care 15 min low complexity Subjective: Roxana is making multiple requests and feeling as though she is struggling with medications. She would like increased Wellbutrin XL and Concerta. I agreed to the Wellbutrin, but not the Concerta. We are discussing potential discharge today, although Roxana believes she can derive additional benefit from being here another day. Objective - Appearance Appearance: Thin Framed Dysmorphic Features: No Hygiene: Normal Grooming: Fairly Well Kept - Behavior Psychomotor Activities: Normal Exhibits Abnormal Movement: No - Attitude and Relatedness Attitude and Relatedness: Cooperative Eye Contact: Good - Speech Quality: Unpressured Latencies: Normal Quantity: Appropriate - Mood Patient's Decription of Mood: "Fine" - Affect Observed Affect: Constricted Affect Consistent with: Dysphoria - Thought Process Patient's Thought Process: Coherent, Goal Directed Thought Content: No Passive Wish, No Suicidal Planning, No Homicidal Ideation, No Paranoid Ideation - Sensorium Experiencing Hallucinations: No, Sensorium is Clear Type of Hallucinations: Visual: No, Auditory: No, Command: No - Level of Consciousness Level of Consciousness: Alert Orientation: Yes Intact, Yes Orientated to Time, Yes Orientated to Place, Yes Orientated to Person - Impulse Control Impulse Control: Intact - Insight and Judgement Insight and Judgement: Fair - Group Participation Particating in Group Activities: Yes - Medication Management Medication Management Adherence: Yes - Additional Observations Comments: Medication recommendation adherent, she is pleased that she is beginning to sleep better. The milieu is very upsetting and agitating to her. She is feeling better. Assessment - Assessment Merits Inpatient Hospitalization: For Immediate Safety Inpatient DSM-V Dx: F43.10 Clinical Impression: This is likely an exacerbation of PTSD, but there is an overlaying depressive disorder that remains and needs to be treated. Medications are being refined and Roxana is responding well and using her hospital stay to make changes in a safe environment. Plan - Plan Treatment Plan: Name: ROXANA ELKINS Birthdate: 1975 [id number] Medications: Current Medications Acetaminophen (Tylenol Tab*) 650 mg PO Q4H PRN PRN Reason: PAIN or TEMP > 101 F Last Admin: 01/22/18 08:57 Dose: 650 mg Al Hydrox/Mg Hydrox/Simethicone (Maalox Plus*) 30 ml PO Q4H PRN PRN Reason: INDIGESTION Bupropion HCl (Bupropion Xl*) 450 mg PO DAILY [facility] Cetirizine HCl (Zyrtec*) 10 mg PO DAILY [facility] Last Admin: 01/22/18 08:04 Dose: 10 mg Diazepam (Valium Tab(*)) 5 mg PO TID [facility] Last Admin: 01/22/18 08:04 Dose: 5 mg Famotidine (Pepcid Tab*) 20 mg PO DAILY [facility] Last Admin: 01/22/18 08:05 Dose: 20 mg Ferrous Sulfate (Ferrous Sulfate Tab*) 325 mg PO BEDTIME [facility] Last Admin: 01/21/18 20:40 Dose: 325 mg Gabapentin (Neurontin Cap(*)) 600 mg PO QID [facility] Last Admin: 01/22/18 08:03 Dose: 600 mg Methylphenidate HCl (Concerta) 54 mg PO DAILY [facility] Last Admin: 01/22/18 08:05 Dose: 54 mg Metronidazole (Metrocream (Nf)) 1 applic TOPICAL BID PRN PRN Reason: ITCHING Last Admin: 01/21/18 17:36 Dose: 1 applic Multivitamins (Theragran Tab*) 1 tab PO DAILY [facility] Last Admin: 01/22/18 08:04 Dose: 1 tab Prazosin HCl (Minipress Cap*) 3 mg PO BEDTIME [facility] Last Admin: 01/21/18 20:41 Dose: 3 mg - Discharge Plan Additional Comments: Roxana is struggling with her outpatient providers and would benefit from receiving adequate care that will also fit her schedule. Further, she requires leads on housing that might be able to work with [facility]. Still, she is continuing to benefit from medication changes here. She will be referred to an outpatient therapist who can do trauma work with her. She will also be referred to [facility] for medications.
[2018-01-22] MEDS: METRONIDAZOLE 0.75% TOPICAL PRN (19:37)
[2018-01-22] MEDS: Prazosin CAP* 1 MG PO SCH (20:48)
[2018-01-22] MEDS: Ferrous Sulfate TAB* 325 MG PO SCH (20:49)
[2018-01-23] MEDS: Famotidine TAB* 20 MG PO SCH (07:26)
[2018-01-23] MEDS: Cetirizine* 10 MG TAB PO SCH (07:26)
[2018-01-23] MEDS: Vitamin THERAPEUTIC TAB PO SCH (07:27)
[2018-01-23] MEDS: Diazepam TAB(*) 5 MG PO SCH (07:27)
[2018-01-23] MEDS: Gabapentin CAP(*) 300 MG PO SCH (07:27)
[2018-01-23] MEDS: Methylphenidate ER 27 MG TAB PO SCH (07:27)
[2018-01-23 07:57] VITALS: BP 104/70
[2018-01-23] MEDS ORDERED: BuPROPion XL* 150 MG TAB.XL PO SCH (09:00)
--- NOTE | 2018-01-23 15:59 | DS ---
CC: [facility] * DATE OF ADMISSION: 01/15/2018. DATE OF DISCHARGE: 01/23/2018. PROVIDER: Jeimy Segovia NP in Psychiatry. SUPERVISING PHYSICIAN: Dr. Sher Cook.* (DICTATED BY JEIMY SEGOVIA NP ) DISCHARGE DIAGNOSES: AXIS I: PTSD, anxiety disorder, depressive disorder, ADHD. CONDITION AT THE TIME OF DISCHARGE: Improved. Psychiatrically cleared. Stable. Participated in groups, was social with peers. She has done well her psychiatrically. She tolerated new meds well, including Prazosin and bupropion XL and she will attend [facility] for prescribing and a private outpatient provider for psychotherapy. MENTAL STATUS EXAM AT THE TIME OF DISCHARGE: The patient is calm, cooperative, makes good eye contact. Alert and oriented times three. Her grooming is good. Her speech pace is normal. Her through processes are logical. She is not psychotic or delusional. She denies AH, VH, SI, and HI. Her insight is fair. Her judgment is good. Her impulse control is good. She is willing follow-up and she is urged to see a therapist. DISCHARGE INSTRUCTIONS: A. Medications: Bupropion XL 450 mg daily, valium 2.5 mg up to three times a day, Gabapentin 600 mg four times a day, Methylphenidate ER (also known as Concerta) 54 mg daily, Prazosin 3 mg at bedtime. B. Diet: Regular. C. Activities: As tolerated. Roxana is a smoker, but she has declined a referral to the [facility] Smokers' Quitline at this time. If she decides to access this free service in the future, she can contact the quitline at . There are no studies pending at the time of discharge. D. Follow-up care: Roxana has appointments with [facility] and has contacts at multiple private providers. E. Substance abuse follow-up: Not indicated. HOSPITAL COURSE - PART A: Chief Complaint: "In the last month, I can't stop crying; I'm having panic attacks; I can't afford anything." The patient is a 42-year-old, , white female with a history of PTSD, ADHD, anxiety attacks and possibly bipolar disorder who arrives on a voluntary status following her perceived need to receive inpatient care regarding her suicidal ideation and incredibly high anxiety level. Roxana has a number of stressors that she is struggling with. 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 She was not seeing a therapist. She recently saw Damaris Cool for the first time last week. She has to move out of her home to some place that is less expensive, but she cannot find anything in [place]. She works with a man named Adilson at [facility] about finding housing. Her dog currently is at home with no one to mind it and she needs help getting him watered and fed. She feels alone in the world like there is no one to help her. Her sleep is poor due to having moved her sleep schedule. She has no interest in anything. Her energy is low. She cannot concentrate partially because she has ADHD and partially because she is so distressed all the time. Her appetite is minimal. She is quite still as she sits on her bed. I know her from the outpatient world and she generally has fluttering hands and makes many gestures, which is different now. She is having suicidal ideation. HOSPITAL COURSE - PART B: Psychiatric treatment rendered: The patient was admitted to the Adult Behavioral Health Unit and placed on 15 minute checks for safety. The patient did well on the unit and went to groups after the first two days. She interacted well with peers. She tolerated med changes. We switched from Dexedrine to Concerta. We changed Valium to 5 mg three times a day and on outpatient it is reduced to 2.5 mg up to three times a day prn anxiety. We started Prazosin at bedtime, 3 mg which she tolerated well. Her hemoglobin A1c was 5.2. Her triglycerides were 296. Cholesterol was 180. LDL cholesterol was 75. HDL cholesterol was 45.4. TSH is 1.66. It should be noted that her urine did come back positive for amphetamines, benzodiazepines, and cocaine. She did not comment on her potential cocaine use. I did run the test twice and it was positive both times. No consults were entered. She is improved. She is looking forward to finding new housing, getting a therapist who can be helpful to her and see her adequately and meet her needs which she stated were not being met at the [facility]. She is improved. She is having fewer nightmares, although when she is triggered she still has nightmares. She is able to function. She still has some hyperarousal going on, but she is much more calm than she was upon admission. JEIMY SEGOVIA, MONUMENT INSTALLER [id number]/CPS #: [id number] ENRIKE
== END 2018-01-23 12:36 | disposition home or self-care (01) | DRG 755 ==
LOC: ED 18:55 → BSU 23:50
PROVIDERS: ADMIT Psychiatry & Neurology Psychiatry; ATTEND Psychiatry & Neurology Psychiatry
DX: F43.10 Post-traumatic stress disorder, unspecified (principal); R45.851 Suicidal ideations; F32.9 Major depressive disorder, single episode, unspecified; F90.9 Attention-deficit hyperactivity disorder, unspecified type; F17.210 Nicotine dependence, cigarettes, uncomplicated
CPT/HCPCS: 36415; 80053; 80061; 80307; 80320; 80329; 81003; 81015; 83036; 84443; 84702; 85025; 87086; 93005; 99222; 99231; 99232; 99233; 99238; 99284; A9270-GY; G0480